=== PATIENT | female | born 1985 | race African-American/Black ===

== ENCOUNTER 2024-08-09 21:53 | Emergency (ER) | payer SELFPAY ==
[2024-08-09 22:05] VITALS: BMI 23.6
[2024-08-09] MEDS ORDERED: LIDOCAINE 2.5%/PRILOCAINE 2.5% (5 Gram/TUBE) TP ONE (22:58)
[2024-08-09] MEDS: LIDOCAINE 2.5%/PRILOCAINE 2.5% (5 Gram/TUBE) TP ONE (22:59)
[2024-08-09 23:06] VITALS: BP 107/78; PULSE 97; RESP 18; TEMP 98.7
== END 2024-08-10 00:02 | disposition home or self-care (01) ==
LOC: JERFT 21:53
PROC: 0HQ1XZZ Repair Face Skin, External Approach (ICD-10-PCS; principal; 2024-08-09)
DX: S01.112A Laceration without foreign body of left eyelid and periocular area, initial encounter (principal); W22.8XXA Striking against or struck by other objects, initial encounter
CPT/HCPCS: 99282-25

== ENCOUNTER 2024-08-13 18:21 | Emergency (ER) | payer OTHER ==
[2024-08-13 18:29] VITALS: BP 128/80; PULSE 78; RESP 18; TEMP 98; BMI 20.9
== END 2024-08-13 19:00 | disposition home or self-care (01) ==
LOC: JER 18:21 → JERFT 18:21
DX: Z48.02 Encounter for removal of sutures (principal)
CPT/HCPCS: 99281-25